=== PATIENT | female | born 1945 | race Caucasian/White ===

== ENCOUNTER 2019-01-13 06:07 | Day surgery (SDC) | payer OTHER, MEDICARE ==
[2019-01-13] MEDS ORDERED: ACETAMINOPHEN 500 MG TAB PO ONE (06:14)
[2019-01-13] MEDS ORDERED: GABAPENTIN 300 MG CAP PO ONE (06:14)
[2019-01-13] MEDS ORDERED: ceFAZolin 2 GM/DEXTROSE 100 ML IV ONE (06:14)
[2019-01-13] MEDS ORDERED: LIDOCAINE 1% 2 ML INJ ID PRN (06:15)
[2019-01-13] MEDS ORDERED: LR 1,000 ML IV ONE (06:15)
[2019-01-13] MEDS ORDERED: BUPIVACAINE/EPI 0.25% 30 ML SDV ONE (06:24)
[2019-01-13] MEDS ORDERED: BACITRACIN 50,000 UNITS/10 ML SYR IRR ONE (06:24)
[2019-01-13] MEDS ORDERED: CHLORHEXIDINE GLUC HIBICLENS 118 ML BTL TP ONE (06:25)
[2019-01-13] MEDS ORDERED: SURGIFLO MATRIX KIT WITH THROMBIN 8 ML TP ONE (06:25)
[2019-01-13] MEDS ORDERED: MIDAZOLAM 2 MG/2 ML VIAL IVP ONE (07:52)
--- NOTE | 2019-01-13 07:53 | PDANEPAE ---
ANE Past Medical History - Cardiovascular History Hx Hypertension: No Hx Arrhythmias: No Hx Chest Pain: No Hx Coronary Artery / Peripheral Vascular Disease: No Hx CHF / Valvular Disease: No Hx Palpitations: No - Pulmonary History Hx COPD: No Hx Asthma/Reactive Airway Disease: No Hx Recent Upper Respiratory Infection: No Hx Oxygen in Use at Home: No Hx Sleep Apnea: No Sleep Apnea Screening Result - Last Documented: Negative - Neurologic History Hx Cerebrovascular Accident: No Hx Seizures: No Hx Dementia: No - Endocrine History Hx Diabetes: No - Renal History Hx Renal Disorders: No - Liver History Hx Hepatic Disorders: No - Neurological & Psychiatric Hx Hx Neurological and Psychiatric Disorders: No - Cancer History Hx Cancer: No - Congenital Disorder History Hx Congenital Disorders: No - GI History Hx Gastrointestinal Disorders: No - Other Health History Other Health History: wears reading glasses. fibromyalgia - Chronic Pain History Chronic Pain: Yes (left hip) - Surgical History Prior Surgeries: na ANE Review of Systems Review of Systems: - Exercise capacity METS (RN): 4 METS ANE Patient History - Allergies Allergies/Adverse Reactions: Sulfa (Sulfonamide Antibiotics) Allergy (Verified 01/13/19 06:35) mother had rxn, pt has not had sulfa - Home Medications Home Medications: Advil PRN 01/05/19 [Last Taken 01/06/19] Tylenol Extra Strength 01/13/19 [Last Taken 01/12/19] - NPO status NPO Since - Liquids (Date): 01/13/19 NPO Since - Liquids (Time): 00:00 NPO Since - Solids (Date): 01/12/19 NPO Since - Solids (Time): 18:00 - Smoking Hx Smoking Status: Never smoked - Family Anes Hx Family Hx Anesthesia Complications: none ANE Labs/Vital Signs - Vital Signs Blood Pressure: 161/95 Heart Rate: 67 Respiratory Rate: 18 O2 Sat (%): 92 Height: 167.64 cm Weight: 72.575 kg ANE Physical Exam - Airway Neck exam: FROM Mallampati Score: Class 1 Mouth exam: normal dental/mouth exam - Pulmonary Pulmonary: no respiratory distress - Cardiovascular Cardiovascular: regular rate and rhythym - ASA Status ASA Status: I ANE Anesthesia Plan Anesthesia Plan: general endotracheal anesthesia
[2019-01-13] MEDS ORDERED: fentaNYL 100 MCG/2 ML INJ ONE ×2 (07:57)
[2019-01-13] MEDS ORDERED: PROPOFOL/EMULSION 500 MG/50 ML BOTTLE IV ONE (07:57)
[2019-01-13] MEDS ORDERED: ROCURONIUM 50 MG/5 ML VIAL ONE (07:57)
[2019-01-13] MEDS ORDERED: LIDOCAINE 2% 100 MG/5 ML SYR ONE (07:58)
[2019-01-13] MEDS ORDERED: ONDANSETRON 4 MG/2 ML VIAL ONE ×2 (07:58→10:30)
[2019-01-13] MEDS ORDERED: DEXAMETHASONE 4 MG/ML VIAL ONE (07:58)
--- NOTE | 2019-01-13 08:02 | PDHPUP ---
History & Physical Update H&P update statement: This history and physical update is based on an assessment of the patient which was completed after admission or registration (within 24 hours), but prior to the surgery/procedure. H&P update: H&P reviewed & patient examined, no change in patient's condition since H&P completed (Consents signed and site marked. All questions answered.)
[2019-01-13] MEDS ORDERED: MIDAZOLAM 2 MG/2 ML VIAL ONE (08:06)
[2019-01-13] MEDS ORDERED: fentaNYL 100 MCG/2 ML INJ IVP PRN (08:10)
[2019-01-13] MEDS ORDERED: ACETAMINOPHEN 500 MG TAB PO PRN (08:10)
[2019-01-13] MEDS ORDERED: ONDANSETRON 4 MG/2 ML VIAL IVP PRN (08:10)
[2019-01-13] MEDS ORDERED: oxyCODONE IR 5 MG TAB PO PRN (08:10)
[2019-01-13] MEDS ORDERED: NALOXONE HCL 0.4 MG/ML INJ IVP PRN (08:10)
[2019-01-13] MEDS ORDERED: HYDROmorphONE/DILAUDID 1 MG/ML INJ IVP PRN (08:10)
[2019-01-13] MEDS ORDERED: ALBUTEROL 3 ML DEYVIAL IH PRN (08:10)
[2019-01-13] MEDS ORDERED: HYDROCODONE/APAP 5/325 TAB PO PRN (08:10)
[2019-01-13] MEDS ORDERED: GLYCOPYRROLATE 0.2 MG/1 ML VIAL ONE ×2 (09:13)
[2019-01-13] MEDS ORDERED: NEOSTIGMINE METHYLSULFATE 5 MG/5 ML SYR ONE (09:13)
--- NOTE | 2019-01-13 09:41 | POSTANESTH ---
Post Anesthetic Evaluation Cardiovascular Status: Similar to Pre-Op Cond Respiratory Status: Similar to Pre-op Cond. Level of Consciousness/Mental Status: Mildly Sleepy, Arousable Pain Control: Adequate, Prn Tx Ordered Nausea/Vomiting Control: Adequate, Prn Tx Ordered Complications Possibly Related to Anesthesia: None Noted
--- NOTE | 2019-01-13 09:47 | POSTOPPROG ---
Post Op Note Date of Operation: 01/13/19 Surgeon: Wilmar Lara Help Desk Intern: Malorie Rodriguez NP Anesthesiologist: Dr Smith Anesthesia: GET(General Endotracheal) Pre-op Diagnosis: Sacroilitis Procedure: Left SI joint fusion Inf/Abcess present in the surg proc area at time of surgery?: No Depth: Deep Incisional (Fascial) EBL: Minimal Total fluids administered: see anesthesia Complications: none Bowel Protocol: N/A Clean Closure Performed: N/A Date of Surgery: 01/13/19 Post Op Day: 0 Assessment/Plan: Assessment: 73 yr old female s/p Left SI joint fusion Plan: DC home when criteria met Subjective: waking up in pacu Objective: waking up in pacu Speech clear No facial droop FERNANDEZ x4 Incision x2 CDI with band-aids, ice pack in place Appropriate Neuro Check Frequency Ordered: Yes
[2019-01-13] MEDS ORDERED: PROMETHAZINE HCL 25 MG/ML INJ ONE (10:58)
[2019-01-13] MEDS ORDERED: PROMETHAZINE HCL 25 MG/ML INJ IVP ONE (11:15)
[2019-01-13] MEDS ORDERED: PROMETHAZINE HCL 25 MG/ML INJ IVP PRN (11:15)
--- NOTE | 2019-01-13 12:14 | GOP ---
[f rep st] OPERATIVE REPORT DATE OF OPERATION: 01/13/2019 SURGEON: Wilmar Lara MD SOCCER COMMENTATOR: Malorie Rodriguez NP ANESTHESIA: General. PREOPERATIVE DIAGNOSIS: 1. Left-sided sacroiliac joint dysfunction. 2. Treatment refractory to nonoperative intervention. POSTOPERATIVE DIAGNOSIS: 1. Left-sided sacroiliac joint dysfunction. 2. Treatment refractory to nonoperative intervention. PROCEDURE PERFORMED: 1. Left-sided minimally invasive sacroiliac joint fusion with 2 Medtronic Bearcreek cages filled with morselized autograft and allograft. 2. Use of intraoperative 3D Stealth navigation. 3. Use of intraoperative fluoroscopy, less than 1 hour physician time. 4. Use of neuromonitoring. FINDINGS: per imaging SPECIMENS: None. ESTIMATED BLOOD LOSS: 5 mL. INDICATIONS: The patient is a very pleasant, 73-year-old woman who has undergone prior lumbar fusions. She presented with worsening left-sided SI joint dysfunction, which failed nonoperative action. After discussion of risks , benefits, and treatment alternatives, and after failing nonoperative intervention, we decided to proceed forth with surgery as described above. DESCRIPTION OF PROCEDURE: Patient was brought to the operating theater and underwent general endotracheal anesthesia without complications. She had Venodynes, ANUP hose, and the appropriate lines placed by Anesthesia. She was then flipped prone onto the Gabriel table and all bony processes inspected and padded. The lower lumbar region, including the buttocks were then prepped and draped in the usual sterile surgical fashion. A time-out was completed per protocol, and the patient received antibiotics within 1 hour of incision. A small incision was marked over the right posterior superior iliac spine. This was infiltrated with Marcaine with epinephrine. The incision was then opened with a scalpel blade. We then placed the percutaneous pin for the 3D navigation system into the right posterior superior iliac spine. We completed a 3D Stealth navigation spin. Using 3D Stealth navigation, we picked our entry point that would give us the best approach to the left sacroiliac joint. This was marked as a vertical incision on the buttock. This was infiltrated with Marcaine with epinephrine and opened the scalpel blade. We then used the 3D Stealth navigation system to drill and tap 2 holes across the left sacroiliac joint. These were then measured and we placed a 50 mm and 60 mm Medtronic Bearcreek screw filled with morselized autograft and allograft across the left- sided sacroiliac joint. Another 3D Stealth navigation spin demonstrated good placement of the hardware. The wounds were irrigated copiously with bacitracin irrigation and closed in multiple layers, including Vicryl sutures for the deep layers and Dermabond for skin. The patient's wounds were dressed sterilely. She was then flipped supine onto the transfer cart. She was awakened, extubated, and taken to recovery room in stable condition. There were no complications and no noted change on neuromonitoring throughout the procedure. COMPLICATIONS: None. /[id number]/MODL MTDD
[2019-01-13 13:37] VITALS: BP 131/80
== END 2019-01-13 14:35 | disposition home or self-care (01) ==
LOC: FSGY 06:07
PROVIDERS: ATTEND Neurological Surgery
DX: M46.1 Sacroiliitis, not elsewhere classified (principal); M43.16 Spondylolisthesis, lumbar region; M16.0 Bilateral primary osteoarthritis of hip; Z98.1 Arthrodesis status; M46.26 Osteomyelitis of vertebra, lumbar region
CPT/HCPCS: C1713; J0690; J1100; J2001; J2250; J2405; J2550; J2704; J2710; J3010